=== PATIENT | female | born 1945 | race Caucasian/White ===

== ENCOUNTER 2019-12-07 10:06 | Outpatient (CLI) | payer MEDICARE, SELFPAY ==
--- NOTE | ~2019-12-07 | CT_ITS ---
EXAMINATION: CTA abdomen DATE: 12/07/2019 10:49 INDICATION: Abnormal findings on diagnostic imaging. TECHNIQUE: Computed tomographic angiography (CTA) of the abdomen was performed with 100 mL Omnipaque- 350 intravenous contrast. Automated exposure control and iterative reconstruction technique were empl oyed. The dose-length product was 223.94 mGy-cm. Maximum intensity projection 3D-reconstructions of t he aorta and other arteries were constructed by the technologist on a separate workstation. COMPARISON: None. FINDINGS: The visualized portions of the lung bases demonstrate mild atelectasis. No pleural effusion . Cardiomegaly is noted. No pericardial effusion. There is a small sliding hiatal hernia. The liver, gallbladder, spleen, and pancreas are normal. There is cortical thinning of the kidneys. There is a 5 mm cyst in left kidney. There are no dilated loops of bowel. There are no pathologically enlarged ly mph nodes. There is no free intraperitoneal fluid. There is atherosclerosis of abdominal aorta, which is normal in caliber. 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 There is no significant st enosis of superior mesenteric artery, inferior mesenteric artery, or the renal arteries. There is mil d thoracolumbar spondylosis. IMPRESSION: 1. Moderate stenosis of celiac axis. Reviewed, dictated and finalized at location A. CASTER
[2019-12-07 10:37] LABS: Estimated Glomerular Filt Rate > 60
== END 2019-12-07 10:07 | disposition home or self-care (01) ==
LOC: ANHIMG 10:16
PROVIDERS: PCP Nurse Practitioner Adult Health; Visit Provider Nurse Practitioner Adult Health
DX: R93.89 Abnormal findings on diagnostic imaging of other specified body structures (principal)
CPT/HCPCS: 36415; 74175; Q9967

== ENCOUNTER → 2020-07-25 16:33 | Outpatient (REF) | payer MEDICARE, SELFPAY | LOC: ANHLAB 16:33 | PROVIDERS: PCP Nurse Practitioner Adult Health; Visit Provider Nurse Practitioner | DX: C44.319 Basal cell carcinoma of skin of other parts of face (principal) | CPT/HCPCS: 88305 ==

== ENCOUNTER → 2020-10-10 09:48 | Outpatient (REF) | payer MEDICARE, SELFPAY | LOC: ANHLAB 09:48 | PROVIDERS: PCP Nurse Practitioner Adult Health; Visit Provider Nurse Practitioner | DX: C44.310 Basal cell carcinoma of skin of unspecified parts of face (principal) | CPT/HCPCS: 88305; 88331 ==

== ENCOUNTER 2024-04-20 22:35 | Emergency (ER) | payer MEDICARE, SELFPAY ==
--- NOTE | ~2024-04-20 | CT_ITS ---
Non-contrast Head CT History: Head injury Technique: Axial non-contrast imaging of the brain was performed. Dose reduction technique was used on this scan by utilizing automated exposure control and iterative reconstruction technique. The dose -length product (DLP) was 605.33 mGy-cm. Findings: There is no evidence of intracranial hemorrhage, mass lesion, or acute infarct. Brain par enchyma appears normal. The ventricles and subarachnoid spaces are normal in size. The calvarium ap pears normal. The visualized paranasal sinuses and mastoid air cells are clear. Impression: No significant abnormality seen. Reviewed, dictated and finalized at location . Impression: No significant abnormality seen.
--- NOTE | ~2024-04-20 | CT_ITS ---
CT Facial Bones and Cervical Spine Clinical Indication: Trauma Technique: Contiguous axial scans were obtained through the facial bones and cervical spine followed by coronal and sagittal reconstructions. Dose reduction technique was used on this scan by utilizing automated exposure control and iterative reconstruction technique. The dose-length product (DLP) was 150.00 mGy-cm. Findings: CT facial bones: No fractures are identified. The visualized paranasal sinuses are clear. Intraorbita l soft tissues appear normal. CT cervical spine: No fractures or subluxation. Unremarkable visualized bony structures. The interv ertebral disc spaces are preserved. No prevertebral soft tissue swelling. Impression: No fracture is seen in the facial bones. No fracture or subluxation of the cervical spine. Reviewed, dictated and finalized at location . Impression: No fracture is seen in the facial bones. No fracture or subluxation of the cervical spine.
--- NOTE | ~2024-04-20 | XR_ITS ---
Right Knee Technique: AP, lateral, and oblique views were obtained. Clinical History: Pain Findings: No fracture or dislocation is seen. Osseous alignment is anatomic. Joint spaces are preserv ed without degenerative or erosive change. Soft tissues are unremarkable. No joint effusion is seen. Impression: Unremarkable right knee radiographs. Reviewed, dictated and finalized at location . Impression: Unremarkable right knee radiographs.
--- NOTE | ~2024-04-20 | XR_ITS ---
Left Hand Technique: PA, oblique, and lateral views were obtained. Clinical History: Pain Findings: No acute fracture or dislocation is seen. Osseous alignment is anatomic. Joint spaces are p reserved. Soft tissues are unremarkable. Impression: Unremarkable left hand. Reviewed, dictated and finalized at location M. Impression: Unremarkable left hand.
[2024-04-20 22:44] VITALS: BP 118/54; PULSE 86; RESP 15; TEMP 36.6; O2SAT 98
[2024-04-21] MEDS: TETANUS,DIPHTHERIA,AC PERTUSSIS ADULT (0.5 ML) BOOSTRIX IM (03:27)
--- NOTE | 2024-04-21 04:23 | ED.GENADULT ---
HPI - General Adult General Chief complaint: Fall Stated complaint: Fall Time Seen by Provider: 04/21/24 02:42 History of Present Illness HPI narrative: Patient is a 78-year-old female who presents emergency department with chief complaint of right knee and left hand pain. Patient tripped on a sidewalk and landed on outstretched hand and on her right knee. The patient reports she has pain with range of motion reports no loss of conscious reports she has bruising on her face. Patient reports she also has some discomfort in her neck. Related Data Home Medications Medication Instructions Recorded Confirmed ergocalciferol (vitamin D2) 1,250 1,250 mcg PO WEEKLY 07/25/20 mcg (50,000 unit) capsule eszopiclone 3 mg tablet 3 mg PO ONCE 07/25/20 lisinopril 10 mg tablet 10 mg PO DAILY 07/25/20 rosuvastatin 5 mg tablet 5 mg PO DAILY 07/25/20 Allergies Allergy/AdvReac Type Severity Reaction Status Date / Time No Known Allergies Allergy Verified 04/21/24 02:33 Review of Systems Review of Systems: A 10 system review of systems was completed on the patient and is negative except for what is stated in the HPI. Nursing and ancillary documentation was reviewed. [facility] Past Medical History Medical History History of skin cancer 2013 Social History Social History Smoking status: Former smoker Alcohol intake: never Substance use: never Substance use type: does not use Exam Narrative: GENERAL: Well-appearing, well-nourished, and in no acute distress. HEAD: Normocephalic, bruising present to the left cheek. EYES: PERRLA and EOMI. ENT: Nares clear, no rhinorrhea or epistaxis. Mucous membranes moist. NECK: Supple. Mild tenderness to palpation the left paraspinous muscles CHEST: Clear to auscultation. No respiratory distress. HEART: Regular rate and rhythm. No murmur heard. Normal peripheral pulses. ABDOMEN: Soft, nontender, nondistended, normal active bowel sounds. EXTREMITIES: Normal range of motion. No edema. Abrasion present to the dorsum of the right knee tenderness to palpation in the right knee, abrasion present on the palmar aspect of the left hand SKIN: Warm, dry, no rash. NEURO: No focal deficits. Alert and oriented x3. PSYCH: Normal mood and affect. Course Vital Signs Vital signs: Vital Signs Temperature 36.6 C 04/20/24 22:44 Pulse Rate 86 04/20/24 22:44 Respiratory Rate 04/20/24 22:44 Blood Pressure 118/54 L 04/20/24 22:44 Pulse Oximetry 98 04/20/24 22:44 Temperature 36.6 C 04/20/24 22:44 Pulse Rate 86 04/20/24 22:44 Respiratory Rate 04/20/24 22:44 Blood Pressure 118/54 L 04/20/24 22:44 Pulse Oximetry 98 04/20/24 22:44 Medical Decision Making MDM Narrative Medical decision making narrative: Differential diagnosis includes fracture, contusion, sprain, head injury, facial fracture, cervical spine fracture CT head showed no acute abnormality CT facial bones showed no evidence of facial fracture, CT C-spine showed no evidence of cervical spine fracture. Plain film x-rays of the left hand and right knee showed no evidence of fracture, no evidence of foreign body Vital Signs Vital Signs: Vital Signs Temperature 36.6 C 04/20/24 22:44 Pulse Rate 86 04/20/24 22:44 Respiratory Rate 04/20/24 22:44 Blood Pressure 118/54 L 04/20/24 22:44 Pulse Oximetry 98 04/20/24 22:44 Temperature 36.6 C 04/20/24 22:44 Pulse Rate 86 04/20/24 22:44 Respiratory Rate 04/20/24 22:44 Blood Pressure 118/54 L 04/20/24 22:44 Pulse Oximetry 98 04/20/24 22:44 Discharge Plan Discharge Clinical Impression: Abrasion of hand, left, Right knee sprain, Abrasion of knee, right, Head injury, Contusion of face Patient Disposition: Home, Self-Care Condition: Stable Instructions: Antibiot
== END 2024-04-21 05:03 | disposition home or self-care (01) ==
PROVIDERS: Emergency Provider Emergency Medicine; PCP Nurse Practitioner Adult Health
DX: S83.91XA Sprain of unspecified site of right knee, initial encounter (principal); S80.211A Abrasion, right knee, initial encounter; S60.512A Abrasion of left hand, initial encounter; S00.83XA Contusion of other part of head, initial encounter; Z23 Encounter for immunization; Z85.828 Personal history of other malignant neoplasm of skin; Z87.891 Personal history of nicotine dependence; W01.0XXA Fall on same level from slipping, tripping and stumbling without subsequent striking against object, initial encounter
CPT/HCPCS: 70450; 70486; 72125; 73130; 73562; 90471; 90715; 99284